=== PATIENT | female | born 1990 | race Caucasian/White ===

== ENCOUNTER 2017-11-24 10:07 | Inpatient (IN) | payer MEDICAID ==
[~2017-11-24] VITALS: Ht 157.5 cm; Wt 53.3 kg
[2017-11-24 10:54] LABS: Basophils # (auto) 0.1 uL; Basophils % (auto) 1.1 % (0.0-2.0); Eosinophils # (auto) 0 uL; Eosinophils % (auto) 0.7 % (0.0-7.0); Lymphocytes % (auto) 30.5 % (10.0-50.0); Mean Corpuscular Hemoglobin 30.4 pg (28.0-32.0); Mean Corpuscular Hgb Conc. 33.2 g/dL (32.0-36.0); Mean Corpuscular Volume 91.4 fL (80.0-100.0); Monocytes # (auto) 0.4 uL; Monocytes % (auto) 6.9 % (0.0-12.0); Neutrophils # (auto) 3.9 uL; Neutrophils % (auto) 60.8 % (37.0-80.0); Platelet Count (auto) 185 10^3/uL (140-450); Red Blood Cells 4.27 10^6/uL (4.0-5.20); Red Cell Distribution Width 13.2 % (11.8-14.3); White Blood Cell 6.4 10^3/uL (4.4-10.8)
[2017-11-24 11:08] LABS: Urine Bacteria FEW /hpf (None Seen); Urine Blood 1+ /uL (Negative); Urine Specific Gravity 1.007 (1.001-1.035); Urine WBC <1 /hpf (0 - 5)
[2017-11-24 11:19] LABS: Albumin 4.1 g/dL (3.4-5.0); BUN/Creatinine Ratio 15.2; Bilirubin, Total 0.7 mg/dL (0.2-1.0); Calcium 8.7 mg/dL (8.5-10.1); Potassium 3.9 mmol/L (3.5-5.1); Total Protein 7.4 g/dL (6.4-8.2)
[2017-11-24] MEDS ORDERED: SODIUM CHLORIDE 0.9% 1,000 ML IVB ONE (13:40)
[2017-11-24] MEDS ORDERED: ONDANSETRON HCL 4 MG/2 ML VIAL IV ONE (13:45)
[2017-11-24] MEDS ORDERED: ACETAMINOPHEN 325 MG TAB PO ONE (13:45)
[2017-11-24] MEDS ORDERED: KETOROLAC TROMETH 30 MG/ML 1ML VIAL IV ONE (13:45)
[2017-11-24 13:52] LABS: Urine WBC None Seen /hpf (0 - 5)
[2017-11-24 14:19] LABS: Urine Bacteria FEW /hpf (None Seen); Urine Blood 1+ /uL (Negative); Urine Specific Gravity 1.003 (1.001-1.035)
[2017-11-24 14:59] LABS: Alcohol, Urine < 3.0 mg/dL (0-5); Amphetamine Screen, Urine NEGATIVE (NEGATIVE); Barbiturate Scree,Urine NEGATIVE (NEGATIVE); Benzodiazephine Screen, Urine NEGATIVE (NEGATIVE); Cannabinoid Screen, Urine NEGATIVE (NEGATIVE); Cocaine Screen, Urine NEGATIVE (NEGATIVE); Opiate Scree,Urine NEGATIVE (NEGATIVE); Phencyclidine Screen, Urine NEGATIVE (NEGATIVE)
[2017-11-24] MEDS ORDERED: MORPHINE SULFATE 4 MG/ML SYR/VIAL IV PRN ×2 (16:15)
[2017-11-24] MEDS ORDERED: LACTULOSE 20Gm/30ML SOLN PO PRN (16:15)
[2017-11-24] MEDS ORDERED: LORazepam 2MG/ML-1ML VIAL IV PRN ×2 (16:15→17:15)
[2017-11-24] MEDS ORDERED: ACETAMINOPHEN 500 MG TAB PO PRN (16:15)
[2017-11-24] MEDS ORDERED: NITROGLYCERIN 0.4 MG SL TAB SL PRN (16:15)
[2017-11-24] MEDS ORDERED: TEMAZEPAM 15 MG CAP PO PRN (16:15)
[2017-11-24] MEDS ORDERED: MORPHINE SULFATE 8mg/ml INJ SDV IV PRN (16:30)
[2017-11-24] MEDS: SODIUM CHLORIDE 0.9% 1,000 ML IV SCH (16:44)
[2017-11-24 16:54] LABS: Folate (Folic Acid) 22.16 ng/mL (5.38-24)
[2017-11-24] MEDS: HYDROcodone-ACET 5/325MG TAB PO PRN (18:08)
[2017-11-24 18:11] VITALS: BP 102/54
[2017-11-24 20:00] VITALS: BP 100/47
[2017-11-24] MEDS: LORazepam 0.5 MG TAB PO PRN (21:32)
[2017-11-24 22:00] VITALS: BP 100/47
[2017-11-25] MEDS: SODIUM CHLORIDE 0.9% 1,000 ML IV SCH (04:17)
[2017-11-25 05:00] VITALS: BP 84/57
[2017-11-25 06:03] LABS: Cholesterol 117 mg/dL (< 200); HDL Cholesterol 46 mg/dL (40-59); LDL Cholesterol 72 mg/dL (< 100); Triglycerides 68 mg/dL (< 150)
[2017-11-25 09:00] VITALS: BP 96/50
[2017-11-25] MEDS: PROMETHAZINE HCL 25 MG/ML 1ML IV PRN ×2 (09:59→16:22)
[2017-11-25] MEDS: MORPHINE SULFATE 8mg/ml INJ SDV IV PRN ×2 (10:00→16:23)
[2017-11-25 13:00] VITALS: BP 96/56
[2017-11-25 17:11] VITALS: BP 101/50
[2017-11-25 22:14] VITALS: BP 95/51
[2017-11-26 05:10] VITALS: BP 93/54
[2017-11-26 07:33] VITALS: BP 101/55
[2017-11-26] MEDS: MORPHINE SULFATE 8mg/ml INJ SDV IV PRN (10:22)
[2017-11-26] MEDS: PROMETHAZINE HCL 25 MG/ML 1ML IV PRN ×2 (10:22→14:27)
[2017-11-26 11:00] VITALS: BP 105/60
[2017-11-26] MEDS: LORazepam 0.5 MG TAB PO PRN (11:41)
[2017-11-26] MEDS: HYDROcodone-ACET 5/325MG TAB PO PRN (13:54)
[2017-11-26 14:25] VITALS: BP 105/60
[2017-11-26 16:00] VITALS: BP 105/75
== END 2017-11-26 18:10 | disposition home or self-care (01) | DRG 204 ==
LOC: ER 10:14 → TELE 10:15 → TELE-WESTW 17:36
PROVIDERS: ADMIT Internal Medicine; ATTEND Internal Medicine
DX: R55 Syncope and collapse (principal); R56.9 Unspecified convulsions; F32.9 Major depressive disorder, single episode, unspecified; F41.9 Anxiety disorder, unspecified; F43.10 Post-traumatic stress disorder, unspecified; R51 Headache; K59.00 Constipation, unspecified; G47.00 Insomnia, unspecified; Z81.8 Family history of other mental and behavioral disorders; Z82.49 Family history of ischemic heart disease and other diseases of the circulatory system; Z86.59 Personal history of other mental and behavioral disorders; Z83.3 Family history of diabetes mellitus; Z91.410 Personal history of adult physical and sexual abuse; Z98.51 Tubal ligation status
CPT/HCPCS: 36415; 70450; 71045; 80053; 80061; 80307; 81001; 81025; 82550; 82607; 82746; 83735; 84443; 85025; 85652; 93306; 94761; 95819; 96361; 96374; 96375; J1885; J2270; J2405

== ENCOUNTER 2018-03-05 18:19 | Emergency (ER) | payer MEDICAID, OTHER ==
[~2018-03-05] VITALS: Ht 157.5 cm; Wt 49.9 kg
[2018-03-05 18:52] VITALS: BP 109/67
[2018-03-05] MEDS ORDERED: cefTRIAXone SOD 1,000 MG VL IM ONE (19:15)
[2018-03-05] MEDS ORDERED: TETANUS-DIPTH-ACEL PERTUSSIS 0.5ML SYRG IM ONE (19:15)
[2018-03-05] MEDS ORDERED: LIDOCAINE 1% (LOCAL ANESTH.) PF 5ml SDV ONE (19:19)
== END 2018-03-05 20:01 | disposition home or self-care (01) ==
LOC: ER 18:28
DX: S61.211A Laceration without foreign body of left index finger without damage to nail, initial encounter (principal); Z98.51 Tubal ligation status; W45.8XXA Other foreign body or object entering through skin, initial encounter; Y93.89 Activity, other specified; Y92.89 Other specified places as the place of occurrence of the external cause; Y99.8 Other external cause status
CPT/HCPCS: 12001; 90471; 90715; 99283; J0696

== ENCOUNTER 2018-06-06 12:29 | Emergency (ER) | payer MEDICAID, OTHER ==
[~2018-06-06] VITALS: Ht 160 cm; Wt 49.9 kg
[2018-06-06] MEDS ORDERED: PANTOPRAZOLE 40 MG TAB PO ONE (13:30)
[2018-06-06 13:40] LABS: Basophils # (auto) 0 uL; Basophils % (auto) 0.9 % (0.0-2.0); Eosinophils # (auto) 0.1 uL; Eosinophils % (auto) 1.8 % (0.0-7.0); Hemoglobin 13.8 g/dL (12.2-16.2); Lymphocytes # (auto) 1.5 uL; Mean Corpuscular Hemoglobin 30.7 pg (28.0-32.0); Mean Corpuscular Hgb Conc. 32.9 g/dL (32.0-36.0); Mean Corpuscular Volume 93.4 fL (80.0-100.0); Monocytes # (auto) 0.4 uL; Monocytes % (auto) 7.9 % (0.0-12.0); Neutrophils # (auto) 2.7 uL; Neutrophils % (auto) 57.4 % (37.0-80.0); Nucleated Red Blood Cells % 0.1 %; Platelet Count (auto) 216 10^3/uL (140-450); Red Cell Distribution Width 13.1 % (11.8-14.3); White Blood Cell 4.7 10^3/uL (4.4-10.8)
[2018-06-06 14:00] LABS: Albumin 4.2 g/dL (3.4-5.0); Blood Urea Nitrogen 12 mg/dL (7-18); Calcium 8.9 mg/dL (8.5-10.1); Chloride 108 mmol/L (98-107); Potassium 3.7 mmol/L (3.5-5.1); Sodium 139 mmol/L (136-145)
[2018-06-06 14:06] LABS: Alanine Aminotransferase 26 U/L (13-56); Alkaline Phosphatase 58 U/L (45-117); Anion Gap 5 (5-15); Aspartate Aminotransferase 15 U/L (15-37); BUN/Creatinine Ratio 21.8; Bilirubin, Total 0.4 mg/dL (0.2-1.0); Carbon Dioxide 26 mmol/L (21-32); GFR African American 171 mL/min; GFR Non-African American 141 mL/min; Glucose 84 mg/dL (74-106); Total Protein 8.3 g/dL (6.4-8.2)
[2018-06-06 17:19] VITALS: BP 145/52
== END 2018-06-06 17:25 | disposition home or self-care (01) ==
LOC: ER 12:42
DX: K92.0 Hematemesis (principal); K21.9 Gastro-esophageal reflux disease without esophagitis; R42 Dizziness and giddiness; R51 Headache; Z98.51 Tubal ligation status
CPT/HCPCS: 36415; 80053; 84484; 85025; 93005

== ENCOUNTER 2022-12-17 22:59 | Emergency (ER) | payer MEDICAID, OTHER ==
[~2022-12-17] VITALS: Ht 160 cm; Wt 56.0 kg
[2022-12-18 00:12] LABS: Basophils # (auto) 0.1 10 ^3/uL (0-0.2); Basophils % (auto) 1.1 % (0.0-2.0); Eosinophils # (auto) 0.1 10 ^3/uL (0-0.8); Eosinophils % (auto) 0.9 % (0.0-7.0); Hematocrit 39.3 % (36.0-46.0); Lymphocytes # (auto) 2.2 10 ^3/uL (0.4-5.4); Lymphocytes % (auto) 24.1 % (10.0-50.0); Mean Corpuscular Hemoglobin 29.7 pg (28.0-32.0); Mean Corpuscular Hgb Conc. 33.1 g/dL (32.0-36.0); Mean Corpuscular Volume 89.6 fL (80.0-100.0); Monocytes # (auto) 0.8 10 ^3/uL (0-1.3); Monocytes % (auto) 8.9 % (0.0-12.0); Neutrophils # (auto) 5.8 10 ^3/uL (1.6-8.6); Nucleated Red Blood Cells % 0.1 %; Red Blood Cells 4.39 10^6/uL (4.0-5.20); Red Cell Distribution Width 13.2 % (11.8-14.3); White Blood Cell 8.9 10^3/uL (4.4-10.8)
[2022-12-18 00:46] LABS: Albumin 3.9 g/dL (3.4-5.0); BUN/Creatinine Ratio 10.2 (10.0-20.0); Calcium 9.2 mg/dL (8.5-10.1); Potassium 3.4 mmol/L (3.5-5.1)
[2022-12-18 00:49] LABS: Bilirubin, Total 0.4 mg/dL (0.2-1.0); Total Protein 8.2 g/dL (6.4-8.2)
[2022-12-18 01:40] LABS: Urine Bacteria FEW /hpf (None Seen); Urine Blood 3+ /uL (Negative); Urine Mucus FEW (None Seen); Urine Specific Gravity 1.025 (1.001-1.035); Urine WBC 4 /hpf (0 - 5)
[2022-12-18 02:14] LABS: Alcohol, Urine < 3.0 mg/dL (0-10); Amphetamine Screen, Urine NEGATIVE (NEGATIVE); Barbiturate Scree,Urine NEGATIVE (NEGATIVE); Benzodiazephine Screen, Urine NEGATIVE (NEGATIVE); Cannabinoid Screen, Urine POSITIVE (NEGATIVE); Cocaine Screen, Urine NEGATIVE (NEGATIVE); Opiate Scree,Urine NEGATIVE (NEGATIVE); Phencyclidine Screen, Urine NEGATIVE (NEGATIVE)
[2022-12-18] MEDS ORDERED: KETOROLAC TROMETH 30 MG/ML 1ML VIAL IM ONE (02:15)
[2022-12-18] MEDS ORDERED: NITR-87 PO (02:24)
[2022-12-18 02:59] VITALS: BP 128/76
== END 2022-12-18 03:01 | disposition home or self-care (01) ==
LOC: ER 22:59
DX: N39.0 Urinary tract infection, site not specified (principal); R10.2 Pelvic and perineal pain; Z98.51 Tubal ligation status; Z79.899 Other long term (current) drug therapy
CPT/HCPCS: 36415; 74176; 80053; 80307; 81001; 83690; 84702; 85025

== ENCOUNTER 2023-11-11 11:31 | Emergency (ER) | payer MEDICAID, OTHER ==
[~2023-11-11] VITALS: Ht 160 cm; Wt 130.0 kg
[~2023-11-11 11:31] MED LIST: NITR-87 PO
[2023-11-11 12:55] VITALS: BP 111/69; PULSE 90; RESP 14; TEMP 98.4; O2SAT 100
[2023-11-11] MEDS: KETOROLAC TROMETH 60MG/2ML VIAL IM ONE (13:06)
[2023-11-11] MEDS: BACLOFEN 10 MG TAB PO ONE (13:07)
[2023-11-11] MEDS ORDERED: CYCL-839 PO (13:41)
[2023-11-11] MEDS ORDERED: TRAM-626 PO (13:41)
== END 2023-11-11 13:48 | disposition home or self-care (01) ==
LOC: ER 11:31
DX: G93.32 Myalgic encephalomyelitis/chronic fatigue syndrome (principal); M79.7 Fibromyalgia; Z98.51 Tubal ligation status
CPT/HCPCS: 96372; 99283; J1885

== ENCOUNTER 2024-01-13 10:30 | Emergency (ER) | payer MEDICAID ==
[~2024-01-13] VITALS: Ht 160 cm; Wt 52.0 kg
[~2024-01-13 10:30] MED LIST changes: +CYCL-839 PO; +TRAM-626 PO
[2024-01-13 11:16] VITALS: BP 124/44; PULSE 95; RESP 16; TEMP 98.5; O2SAT 97
[2024-01-13] MEDS: KETOROLAC TROMETH 60MG/2ML VIAL IM ONE (12:06)
[2024-01-13] MEDS ORDERED: NAPR-746 PO (12:31)
== END 2024-01-13 12:36 | disposition home or self-care (01) ==
LOC: ER 10:30
DX: M79.7 Fibromyalgia (principal); Z98.51 Tubal ligation status
CPT/HCPCS: 96372; 99283; J1885